=== PATIENT | female | born 1960 | race American Indian/Alaskan Native ===

== ENCOUNTER 2016-06-27 10:55 | Inpatient (IN) | payer OTHER ==
[2016-06-27 11:48] LABS: Hematocrit 34.4 % (30.3-42.9); Mean Corpuscular HGB Conc 32 % (30-34); Mean Corpuscular Hemoglobin 26 pg (28-32); Mean Corpuscular Volume 80 fl (79-97); Platelet Count 261 K/mm3 (140-440); Red Blood Count 4.29 M/mm3 (3.65-5.03); Red Cell Distribution Width 15.5 % (13.2-15.2); White Blood Count 24.5 K/mm3 (4.5-11.0)
[2016-06-27 11:56] LABS: Anion Gap 19 mmol/L; BUN/Creatinine Ratio 11.42; Blood Urea Nitrogen 8 mg/dL (7-17); Calcium 9.1 mg/dL (8.4-10.2); Carbon Dioxide 23 mmol/L (22-30); Chloride 95.8 mmol/L (98-107); Glucose 215 mg/dL (65-100); Sodium 134 mmol/L (137-145)
--- NOTE | 2016-06-27 12:21 | XRay Report ---
ROUTINE CHEST, TWO VIEWS: HISTORY: Cough, fever. Moderate infiltrate is identified in the superior segment of the right lower lobe. The remainder of the lungs are clear. No pleural effusion or pneumothorax. Normal heart and mediastinal structures. IMPRESSION: Right lower lobe pneumonia.
[2016-06-27 12:31] LABS: Basophils % (Manual) 0 % (0.0-1.8); Blastocytes % (Manual) 0 %; Eosinophils % (Manual) 0 % (0.0-4.3)
[2016-06-27 12:32] LABS: Anisocytosis 1+; Diff Status Complete; Target Cells Few; Tear Drop Cells Rare
--- NOTE | 2016-06-27 14:40 | Emergency Department Report ---
HPI - General Chief Complaint: Upper Respiratory Infection Time Seen by Provider: 06/27/16 14:39 - HPI HPI: Patient here complaining of productive cough since last week. She said mucus started at clear brownish color. She is complaining of upper back pain since Friday. Complaining the chest is hurting since last week. Pain only with coughing. She reports fever for a few days. 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 Pain is 10 out of 10 to her upper back. Patient is also requesting a refill on her metformin. She has a history of diabetes in the past. She reports shortness of breath and exertion. ED Past Medical Hx - Past Medical History Previous Medical History?: Yes Hx Diabetes: Yes (TYPE 2) Hx Arthritis: Yes Additional medical history: SICKLE CELL TRAIT. LUPUS - Surgical History Past Surgical History?: Yes Hx Cholecystectomy: Yes Additional Surgical History: ovarian cyst removed - Family History Family history: no significant - Social History Smoking Status: Current Every Day Smoker Substance Use Type: None - Medications Home Medications: Home Medications Medication Instructions Recorded Confirmed Last Taken Type Amlodipine Besylate [Norvasc] 2.5 mg PO DAILY 06/27/16 06/27/16 Unknown History metFORMIN [Glucophage] 500 mg PO TID 06/27/16 06/27/16 06/27/16 07:00 History 500 mg ED Review of Systems ROS: Stated complaint: HBS/FEVER/BACK PAIN/HEADACHE Other details as noted in HPI Comment: All other systems reviewed and negative Constitutional: chills, fever Eyes: denies: eye discharge ENT: denies: ear pain, throat pain, congestion Respiratory: cough, shortness of breath, SOB with exertion. denies: orthopnea, SOB at rest, stridor, wheezing Cardiovascular: chest pain. denies: palpitations, edema, syncope Gastrointestinal: denies: abdominal pain, nausea, vomiting, diarrhea Musculoskeletal: back pain. denies: arthralgia Skin: denies: rash Neurological: denies: headache, weakness, numbness, paresthesias, confusion, abnormal gait, vertigo Physical Exam - Physical Exam Vital Signs: Vital Signs 06/27/16 11:05 Temperature 100.2 F H Pulse Rate 119 H Respiratory 22 Rate Blood Pressure 141/75 O2 Sat by Pulse 100 Oximetry General: This is a 48-year-old female well-nourished well-developed in no acute distress Physical Exam: Head: Normocephalic atraumatic Mouth: Moist, no pharyngeal exudate or erythema. Uvula is midline and oral airway is patent. No gingival enlargement or dental tenderness. No facial swelling. No peritonsillar abscesses. Neck: Supple, no C-spine tenderness, no tracheal deviation. Nontender to palpate. no adenopathy Abdomen: Soft, nontender to palpate in all quadrants, no guarding or rebound tenderness. Ears: Bilateral TMs pearly kapoor.bilateral EAC without any redness swelling or drainage Eyes: Bilateral pupils equal and reactive to light, bilateral EOM intact. Bilateral sclera and conjunctiva without injection. Normal accommodation Nose: Mucosa moist, positive congestion no erythema. Positive clear drainage. maxillary and frontal sinus non-tender to palpate. Lungs: Crackles right base . Rhonchi bilateral upper lung chacko this cleared with coughing. Normal work of breathing . No use of accessory muscles. extremity; No CCE. +2 pulses. No neurovascular compromise Cardiovascular: S1-S2, regular rate rhythm. No murmurs. Capillary refill less than 3 seconds Skin: clean Dry and intact no rash no lesions no no use ED Course Vital Signs 06/27/16 11:05 Temperature 100.2 F H Pulse Rate 119 H Respiratory 22 Rate Blood Pressure 141/75 O2 Sat by Pulse 100 Oximetry Vital Signs 06/27/16 06/27/16 11:05 16:56 Temperature 100.2 F H Pulse Rate 119 H Respiratory 22 16 Rate Blood Pressure 141/75 O2 Sat by Pulse 100 Oximetry - Reevaluation(s) Reevaluation #1: 06/27/16 15:51 Decision made to admit patient. I collaborated with Dr. Davis and I spoke with Dr. Abdalla. Patient given IV fluid 1 L. Zosyn 4.5 gm started. Nebulizer treatment started ED Medical Decision Making - Lab Data Result diagrams: 06/27/16 11:37 06/27/16 11:37 Lab Results 06/27/16 06/27/16 06/27/16 Range/Units 11:13 11:37 11:37 WBC 24.5 H (4.5-11.0) K/mm3 RBC 4.29 (3.65-5.03) M/mm3 Hgb 11.0 (10.1-14.3) gm/dl Hct 34.4 (30.3-42.9) % MCV 80 (79-97) fl MCH 26 L (28-32) pg MCHC 32 (30-34) % RDW 15.5 H (13.2-15.2) % Plt Count 261 (140-440) K/mm3 Add Manual Diff Complete Total Counted 100 Seg Neuts % (Manual) 88.0 H (40.0-70.0) % Band Neutrophils % 3.0 % Lymphocytes % (Manual) 7.0 L (13.4-35.0) % Reactive Lymphs % (Man) 0 % Monocytes % (Manual) 2.0 (0.0-7.3) % Eosinophils % (Manual) 0 (0.0-4.3) % Basophils % (Manual) 0 (0.0-1.8) % Metamyelocytes % 0 % Myelocytes % 0 % Promyelocytes % 0 % Blast Cells % 0 % Nucleated RBC % Not Reportable Seg Neutrophils # Man 21.6 H (1.8-7.7) K/mm3 Band Neutrophils # 0.7 K/mm3 Lymphocytes # (Manual) 1.7 (1.2-5.4) K/mm3 Abs React Lymphs (Man) 0.0 K/mm3 Monocytes # (Manual) 0.5 (0.0-0.8) K/mm3 Eosinophils # (Manual) 0.0 (0.0-0.4) K/mm3 Basophils # (Manual) 0.0 (0.0-0.1) K/mm3 Metamyelocytes # 0.0 K/mm3 Myelocytes # 0.0 K/mm3 Promyelocytes # 0.0 K/mm3 Blast Cells # 0.0 K/mm3 WBC Morphology Not Reportable Hypersegmented Neuts Not Reportable Hyposegmented Neuts Not Reportable Hypogranular Neuts Not Reportable Smudge Cells Not Reportable Toxic Granulation Not Reportable Toxic Vacuolation Not Reportable Dohle Bodies Not Reportable Pelger-Huet Anomaly Not Reportable Amrik Rods Not Reportable Platelet Estimate Appears normal Clumped Platelets Not Reportable Plt Clumps, EDTA Not Reportable Large Platelets Not Reportable Giant Platelets Not Reportable Platelet Satelliting Not Reportable Plt Morphology Comment Not Reportable RBC Morphology Not Reportable Dimorphic RBCs Not Reportable Polychromasia Not Reportable Hypochromasia Not Reportable Poikilocytosis Not Reportable Anisocytosis 1+ Microcytosis Not Reportable Macrocytosis Not Reportable Spherocytes Not Reportable Pappenheimer Bodies Not Reportable Sickle Cells Not Reportable Target Cells Few Tear Drop Cells Rare Ovalocytes Not Reportable Helmet Cells Not Reportable [place] Bodies Not Reportable [place] Rings Not Reportable [place] Cells Not Reportable Bite Cells Not Reportable Crenated Cell Not Reportable Elliptocytes Not Reportable Acanthocytes (Spur) Not Reportable Rouleaux Not Reportable Hemoglobin C Crystals Not Reportable Schistocytes Not Reportable Malaria parasites Not Reportable Percent Retic 1.00 (0.78-2.58) % Joseph Bodies Not Reportable Hem Pathologist Commnt No Sodium 134 L (137-145) mmol/L Potassium 4.0 (3.6-5.0) mmol/L Chloride 95.8 L (98-107) mmol/L Carbon Dioxide 23 (22-30) mmol/L Anion Gap 19 mmol/L BUN 8 (7-17) mg/dL Creatinine 0.7 (0.7-1.2) mg/dL Estimated GFR > 60 ml/min BUN/Creatinine Ratio 11.42 % Glucose 215 H (65-100) mg/dL POC Glucose 212 H (70-105) Calcium 9.1 (8.4-10.2) mg/dL Cultures are pending. - Radiology Data Radiology results: report reviewed Chest x-ray revealed right lower lobe pneumonia. - Medical Decision Making ED course: Patient chest x-ray revealed that she has regular basis pneumonia. Case discussed with Dr. Wiseman. Patient admitted to admit patient. Patient with elevated white count of greater than 20. Cardiac enzymes negative. This was discussed with patient in detail and she understands decision to admit. I spoke with Dr. Ruvalcaba who is the hospitalist and he will be admitted patient to hospitalist service. Pt given IV fluids 1 L, Xopenex 1.25 mg and Atrovent 0.5 mg nebulizer, IV Zosyn 4.5 gm and Tylenol 975 mg given. Patient awaiting [facility] bed. Critical care attestation.: If time is entered above; I have spent that time in minutes in the direct care of this critically ill patient, excluding procedure time. ED Disposition Clinical Impression: Cough Right lower lobe pneumonia Qualifiers: Pneumonia type: due to unspecified organism Qualified Code(s): J18.9 - Pneumonia, unspecified organism Leukocytosis Qualifiers: Leukocytosis type: unspecified Qualified Code(s): D72.829 - Elevated white blood cell count, unspecified Disposition: OP ADMITTED IP TO THIS HOSP Is pt being admited?: Yes Does the pt Need Aspirin: No Condition: Stable
[2016-06-27] MEDS ORDERED: XOPENEX IH ONE (15:31)
[2016-06-27] MEDS ORDERED: ZOSYN/NS 4.5GM/100ML 4.5 GM/100 ML VIAL IV ONE (15:31)
[2016-06-27] MEDS ORDERED: ATROVENT IH ONE (15:31)
[2016-06-27] MEDS ORDERED: TYLENOL PO ONE (15:33)
--- NOTE | 2016-06-27 15:53 | Admit Criteria Form ---
Admission Criteria Documentation: FEBRILE ILLNESS, WITHOUT FOCAL INFECTION Clinical Indications for Admission to Inpatient Care (Place 'X' for any and all applicable criteria): Admission is indicated for ANY ONE of the following (1)(2)(3): [ ] I. Bacteremia [ ]II. Suspected or identified specific infection requiring hospitalization (eg, meningitis, endocarditis) [ ]III. Hemodynamic instability [ ]IV. Altered mental status [ ]V. Failure or unavailability of outpatient antimicrobial treatment [ ]. Hypoxemia [ ]VII. Seizures [ ]VIII. High-risk febrile neutropenia [ ]IX. Need for parenteral antibiotic in patient who is likely to abuse vascular access device (eg, injection drug user) [A](7) [ ]X. Temperature greater than 104.9 degrees F (40.5 degrees C) (oral) [X ]XI. Inpatient admission required rather than observation care because of ANY ONE of the following: [X ]a) Specific infection identified that is too severe for outpatient treatment or observation care trial [ ]b) Metabolic disorder (eg, hypoglycemia, hyperglycemia, metabolic acidosis) that is severe or persistent [ ]c) Temperature greater than 103.1 degrees F (39.5 degrees C) ( oral) that is not responsive to observation care treatment [ ]d) IV fluid to replace significant ongoing (eg, for over 24 hours) losses (> 3 L/m2 per day) [ ]e) Supplemental oxygen or respiratory treatments for over 24 hours that is performable only in acute inpatient setting [ ]f) Parenteral nutrition regimen need that must be implemented on inpatient basis [ ]g) Strict or protective (eg, laminar flow) isolation [ ]h) Other condition, treatment or monitoring requiring inpatient admission Extended stay beyond goal length of stay may be needed for(1)(3) [ ]a) Sepsis or septic shock(22) [ ]b) Positive blood cultures [ ]c) Insufficient oral intake [ ]d) High-risk febrile neutropenia(29)(30) [ ]e) Continued fever and clinical instability [ ]f) Clinically active comorbid illness (e.g,heart failure, renal failure , diabetes) The original [facility] content created by [facility] [employer] has been revised. The portions of the content which have been revised are identified through the use of italic text or in bold, and [facility] [employer] has neither reviewed nor approved the modified material. All other unmodified content is copyright [facility]. Please see references footnoted in the original [facility] edition 2016 Admission Criteria Met: Yes
[2016-06-27] MEDS ORDERED: NOVOLOG SUB-Q SCH (22:00)
[2016-06-27] MEDS: ZOSYN/NS 4.5GM/100ML 4.5 GM/100 ML VIAL IV SCH (22:25)
[2016-06-27] MEDS: ROBITUSSIN AC PO PRN (22:26)
--- NOTE | 2016-06-27 23:36 | History and Physical Report ---
History of Present Illness Date of examination: 06/27/16 Date of admission: 06/27/16 15:47 Chief complaint: Cough and fever for 2 days History of present illness: 56 y/o AAF with Htn and T2DM comes in for fever and cough productive of brown sputum.Some SOB present. R side chest pain on deep inspiration present.Hx of smoking present. Past History Past Medical History: diabetes, hypertension, other (SC trait) Past Surgical History: Other (ovarian cyst removal) Social history: smoking (ppd) Medications and Allergies Allergies Allergy/AdvReac Type Severity Reaction Status Date / Time No Known Allergies Allergy Verified 06/27/16 11:19 Home Medications Medication Instructions Recorded Confirmed Last Taken Type Amlodipine Besylate [Norvasc] 2.5 mg PO DAILY 06/27/16 06/27/16 Unknown History metFORMIN [Glucophage] 500 mg PO TID 06/27/16 06/27/16 06/27/16 07:00 History 500 mg Active Meds: Active Medications Piperacillin Sod/Tazobactam Sod (Zosyn/Ns 4.5gm/100ml) 4.5 gm in 100 mls @ 200 mls/hr IV Q8HR HERMELINDO PRN Reason: Protocol Last Admin: 06/27/16 22:25 Dose: 200 mls/hr Influenza Virus Vaccine Quadrival (Fluarix Quad [id number](36 Mos+)) 60 mcg IM .ONCE ONE Stop: 06/28/16 12:01 Insulin Aspart (Novolog) 0 units SUB-Q ACHS HERMELINDO PRN Reason: Protocol Last Admin: 06/27/16 22:26 Dose: 2 units Pneumococcal Polyvalent Vaccine (Pneumovax 23) 0.5 ml IM .ONCE ONE Stop: 06/28/16 12:01 Pseudoephedrine/Acetam/Chlorphenir (Robitussin Ac) 10 ml PO Q4H PRN PRN Reason: Cough Last Admin: 06/27/16 22:26 Dose: 10 ml Review of Systems Constitutional: fever, fatigue, poor appetite, no weight loss, no weight gain Ears, nose, mouth and throat: no ear pain, no ear discharge, no tinnitis, no decreased hearing, no nasal congestion, no nasal discharge Breasts: deferred Cardiovascular: no chest pain, no orthopnea, no palpitations, no rapid/ irregular heart beat Respiratory: no cough, no cough with sputum, no excessive sputum, no hemoptysis , no shortness of breath, no dyspnea on exertion Gastrointestinal: no abdominal pain, no nausea, no vomiting, no diarrhea, no change in bowel habits Genitourinary Female: no dysuria, no urinary frequency, no urgency, no stress incontinence Menstruation: ammenorrhea Musculoskeletal: no neck stiffness, no neck pain, no shooting arm pain Integumentary: no rash, no pruritis, no redness Neurological: no seizures, no syncope, no ataxia, no lack of coordination, no balance difficulties Psychiatric: no anxiety, no change in sleep habits, no suicidal ideation Endocrine: no cold intolerance, no heat intolerance, no polyphagia, no excessive thirst, no polydipsia, no polyuria Hematologic/Lymphatic: no easy bruising, no easy bleeding, no lymphedema Allergic/Immunologic: no urticaria, no allergic rhinitis, no wheezing Exam - Constitutional Vitals: Temp Pulse Resp BP Pulse Ox 98.3 F 82 20 100/55 98 06/27/16 23:00 06/27/16 23:00 06/27/16 23:00 06/27/16 23:00 06/27/16 23:00 General appearance: Present: no acute distress, well-nourished - EENT Eyes: Present: PERRL ENT: hearing intact, clear oral mucosa - Neck Neck: Present: supple, normal ROM - Respiratory Respiratory effort: normal Respiratory: right: rales, rhonchi - Cardiovascular Rhythm: regular Heart Sounds: Present: S1 & S2. Absent: rub, click - Extremities Extremities: no ischemia, pulses symmetrical, No edema Peripheral Pulses: within normal limits - Abdominal General gastrointestinal: Present: soft, non-tender, non-distended, normal bowel sounds Female genitourinary: Present: normal - Integumentary Integumentary: Present: clear, warm, dry - Musculoskeletal Musculoskeletal: gait normal, strength equal bilaterally - Psychiatric Psychiatric: appropriate mood/affect, intact judgment & insight - Neurologic Neurologic: CNII-XII intact, moves all extremities - Allied Health Allied health notes reviewed: nursing Results - Labs CBC & Chem 7: 06/27/16 11:37 06/27/16 11:37 Labs: Laboratory Last Values WBC 24.5 K/mm3 (4.5-11.0) H 06/27/16 11:37 RBC 4.29 M/mm3 (3.65-5.03) 06/27/16 11:37 Hgb 11.0 gm/dl (10.1-14.3) 06/27/16 11:37 Hct 34.4 % (30.3-42.9) 06/27/16 11:37 MCV 80 fl (79-97) 06/27/16 11:37 MCH 26 pg (28-32) L 06/27/16 11:37 MCHC 32 % (30-34) 06/27/16 11:37 RDW 15.5 % (13.2-15.2) H 06/27/16 11:37 Plt Count 261 K/mm3 (140-440) 06/27/16 11:37 Add Manual Diff Complete 06/27/16 11:37 Total Counted 100 06/27/16 11:37 Seg Neuts % (Manual) 88.0 % (40.0-70.0) H 06/27/16 11:37 Band Neutrophils % 3.0 % 06/27/16 11:37 Lymphocytes % (Manual) 7.0 % (13.4-35.0) L 06/27/16 11:37 Reactive Lymphs % (Man) 0 % 06/27/16 11:37 Monocytes % (Manual) 2.0 % (0.0-7.3) 06/27/16 11:37 Eosinophils % (Manual) 0 % (0.0-4.3) 06/27/16 11:37 Basophils % (Manual) 0 % (0.0-1.8) 06/27/16 11:37 Metamyelocytes % 0 % 06/27/16 11:37 Myelocytes % 0 % 06/27/16 11:37 Promyelocytes % 0 % 06/27/16 11:37 Blast Cells % 0 % 06/27/16 11:37 Nucleated RBC % Not Reportable 06/27/16 11:37 Seg Neutrophils # Man 21.6 K/mm3 (1.8-7.7) H 06/27/16 11:37 Band Neutrophils # 0.7 K/mm3 06/27/16 11:37 Lymphocytes # (Manual) 1.7 K/mm3 (1.2-5.4) 06/27/16 11:37 Abs React Lymphs (Man) 0.0 K/mm3 06/27/16 11:37 Monocytes # (Manual) 0.5 K/mm3 (0.0-0.8) 06/27/16 11:37 Eosinophils # (Manual) 0.0 K/mm3 (0.0-0.4) 06/27/16 11:37 Basophils # (Manual) 0.0 K/mm3 (0.0-0.1) 06/27/16 11:37 Metamyelocytes # 0.0 K/mm3 06/27/16 11:37 Myelocytes # 0.0 K/mm3 06/27/16 11:37 Promyelocytes # 0.0 K/mm3 06/27/16 11:37 Blast Cells # 0.0 K/mm3 06/27/16 11:37 WBC Morphology Not Reportable 06/27/16 11:37 Hypersegmented Neuts Not Reportable 06/27/16 11:37 Hyposegmented Neuts Not Reportable 06/27/16 11:37 Hypogranular Neuts Not Reportable 06/27/16 11:37 Smudge Cells Not Reportable 06/27/16 11:37 Toxic Granulation Not Reportable 06/27/16 11:37 Toxic Vacuolation Not Reportable 06/27/16 11:37 Dohle Bodies Not Reportable 06/27/16 11:37 Pelger-Huet Anomaly Not Reportable 06/27/16 11:37 Amrik Rods Not Reportable 06/27/16 11:37 Platelet Estimate Appears normal 06/27/16 11:37 Clumped Platelets Not Reportable 06/27/16 11:37 Plt Clumps, EDTA Not Reportable 06/27/16 11:37 Large Platelets Not Reportable 06/27/16 11:37 Giant Platelets Not Reportable 06/27/16 11:37 Platelet Satelliting Not Reportable 06/27/16 11:37 Plt Morphology Comment Not Reportable 06/27/16 11:37 RBC Morphology Not Reportable 06/27/16 11:37 Dimorphic RBCs Not Reportable 06/27/16 11:37 Polychromasia Not Reportable 06/27/16 11:37 Hypochromasia Not Reportable 06/27/16 11:37 Poikilocytosis Not Reportable 06/27/16 11:37 Anisocytosis 1+ 06/27/16 11:37 Microcytosis Not Reportable 06/27/16 11:37 Macrocytosis Not Reportable 06/27/16 11:37 Spherocytes Not Reportable 06/27/16 11:37 Pappenheimer Bodies Not Reportable 06/27/16 11:37 Sickle Cells Not Reportable 06/27/16 11:37 Target Cells Few 06/27/16 11:37 Tear Drop Cells Rare 06/27/16 11:37 Ovalocytes Not Reportable 06/27/16 11:37 Helmet Cells Not Reportable 06/27/16 11:37 [place]ed[place] Bodies Not Reportable 06/27/16 11:37 [place] Rings Not Reportable 06/27/16 11:37 [place] Cells Not Reportable 06/27/16 11:37 Bite Cells Not Reportable 06/27/16 11:37 Crenated Cell Not Reportable 06/27/16 11:37 Elliptocytes Not Reportable 06/27/16 11:37 Acanthocytes (Spur) Not Reportable 06/27/16 11:37 Rouleaux Not Reportable 06/27/16 11:37 Hemoglobin C Crystals Not Reportable 06/27/16 11:37 Schistocytes Not Reportable 06/27/16 11:37 Malaria parasites Not Reportable 06/27/16 11:37 Percent Retic 1.00 % (0.78-2.58) 06/27/16 11:37 Joseph Bodies Not Reportable 06/27/16 11:37 Hem Pathologist Commnt No 06/27/16 11:37 Sodium 134 mmol/L (137-145) L 06/27/16 11:37 Potassium 4.0 mmol/L (3.6-5.0) 06/27/16 11:37 Chloride 95.8 mmol/L (98-107) L 06/27/16 11:37 Carbon Dioxide 23 mmol/L (22-30) 06/27/16 11:37 Anion Gap 19 mmol/L 06/27/16 11:37 BUN 8 mg/dL (7-17) 06/27/16 11:37 Creatinine 0.7 mg/dL (0.7-1.2) 06/27/16 11:37 Estimated GFR > 60 ml/min 06/27/16 11:37 BUN/Creatinine Ratio 11.42 % 06/27/16 11:37 Glucose 215 mg/dL (65-100) H 06/27/16 11:37 POC Glucose 207 (70-105) H 06/27/16 21:20 Lactic Acid 1.0 mmol/L (0.7-2.0) 06/27/16 19:00 Calcium 9.1 mg/dL (8.4-10.2) 06/27/16 11:37 Short CBC 06/27/16 Range/Units 11:37 WBC 24.5 H (4.5-11.0) K/mm3 Hgb 11.0 (10.1-14.3) gm/dl Hct 34.4 (30.3-42.9) % Plt Count 261 (140-440) K/mm3 BMP 06/27/16 11:37 Sodium 134 L Potassium 4.0 Chloride 95.8 L Carbon Dioxide 23 BUN 8 Creatinine 0.7 Glucose 215 H Calcium 9.1 - Imaging and Cardiology Chest x-ray: report reviewed (RLL pneumonia) Assessment and Plan Advance Directives: No VTE prophylaxis?: Chemical Plan of care discussed with patient/family: Yes - Patient Problems (1) Leukocytosis Current Visit: Yes Status: Acute Qualifiers: Leukocytosis type: unspecified Qualified Code(s): D72.829 - Elevated white blood cell count, unspecified (2) Right lower lobe pneumonia Current Visit: Yes Status: Acute Qualifiers: Pneumonia type: due to unspecified organism Aspiration pneumonia type: A Qualified Code(s): J18.9 - Pneumonia, unspecified organism Plan to address problem: Patient started on IV Zosyn 4.5 q8h (3) SIRS (systemic inflammatory response syndrome) Current Visit: Yes Status: Acute Plan to address problem: Patient has Leukocytosis High fever and clinical picture c/w SIRS (4) HTN (hypertension) Current Visit: Yes Status: Chronic Qualifiers: Hypertension type: essential hypertension Qualified Code(s): I10 - Essential (primary) hypertension Plan to address problem: Cont Amlodipine 2.5 mg po qd (5) T2DM (type 2 diabetes mellitus) Current Visit: Yes Status: Chronic Qualifiers: Diabetes mellitus complication status: without complication Diabetes mellitus complication detail: D Diabetic retinopathy severity: D Proliferative retinopathy type: P Diabetes mellitus macular edema: D Diabetes mellitus adjunct faculty for medical terminology insulin use: without mcfp use Laterality: L Chronic kidney disease stage: C Qualified Code(s): E11.9 - Type 2 diabetes mellitus without complications Plan to address problem: cont Metformin and coverage with insulin (6) DVT prophylaxis Current Visit: Yes Status: Acute Plan to address problem: on lovenox 40 mg sq qd
[2016-06-27] MEDS ORDERED: NACL 0.9% 1000 ML 1,000 ML IV SCH (23:45)
[2016-06-28] MEDS: ZOSYN/NS 4.5GM/100ML 4.5 GM/100 ML VIAL IV SCH ×3 (06:55→22:32)
[2016-06-28] MEDS: ROBITUSSIN AC PO PRN (06:56)
[2016-06-28] MEDS: NOVOLOG SUB-Q SCH ×3 (08:17→17:29)
[2016-06-28] MEDS: GLUCOPHAGE PO SCH ×2 (08:18→12:01)
[2016-06-28] MEDS ORDERED: NON-FORMULARY (Amlodipine Besylate [Norvasc] 2.5 MG) PO SCH (10:00)
[2016-06-28] MEDS: NORVASC PO SCH (11:53)
[2016-06-28] MEDS ORDERED: FLUARIX QUAD 2016-2017(36 MOS+) IM ONE (12:00)
[2016-06-28] MEDS ORDERED: PNEUMOVAX 23 IM ONE (12:00)
[2016-06-28] MEDS ORDERED: D50W (25GM) IV PRN (13:53)
--- NOTE | 2016-06-28 13:55 | Progress Note ---
Assessment and Plan - Patient Problems (1) Sepsis Current Visit: Yes Status: Acute Qualifiers: Sepsis type: S (2) DVT prophylaxis Current Visit: Yes Status: Acute (3) Right lower lobe pneumonia Current Visit: Yes Status: Acute Qualifiers: Pneumonia type: due to unspecified organism Aspiration pneumonia type: A Qualified Code(s): J18.9 - Pneumonia, unspecified organism (4) HTN (hypertension) Current Visit: Yes Status: Chronic Qualifiers: Hypertension type: essential hypertension Qualified Code(s): I10 - Essential (primary) hypertension (5) T2DM (type 2 diabetes mellitus) Current Visit: Yes Status: Chronic Qualifiers: Diabetes mellitus complication status: without complication Diabetes mellitus complication detail: D Diabetic retinopathy severity: D Proliferative retinopathy type: P Diabetes mellitus macular edema: D 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 use Laterality: L Chronic kidney disease stage: C Qualified Code(s): E11.9 - Type 2 diabetes mellitus without complications Hospitalist Physical - Constitutional Vitals: Temp Pulse Resp BP Pulse Ox 98.3 F 72 14 101/52 100 06/28/16 07:20 06/28/16 07:20 06/28/16 07:20 06/28/16 07:20 06/28/16 09:24 General appearance: Present: no acute distress, well-nourished Results - Labs CBC & Chem 7: 06/27/16 11:37 06/27/16 11:37 Labs: Laboratory Last Values WBC 24.5 K/mm3 (4.5-11.0) H 06/27/16 11:37 RBC 4.29 M/mm3 (3.65-5.03) 06/27/16 11:37 Hgb 11.0 gm/dl (10.1-14.3) 06/27/16 11:37 Hct 34.4 % (30.3-42.9) 06/27/16 11:37 MCV 80 fl (79-97) 06/27/16 11:37 MCH 26 pg (28-32) L 06/27/16 11:37 MCHC 32 % (30-34) 06/27/16 11:37 RDW 15.5 % (13.2-15.2) H 06/27/16 11:37 Plt Count 261 K/mm3 (140-440) 06/27/16 11:37 Add Manual Diff Complete 06/27/16 11:37 Total Counted 100 06/27/16 11:37 Seg Neuts % (Manual) 88.0 % (40.0-70.0) H 06/27/16 11:37 Band Neutrophils % 3.0 % 06/27/16 11:37 Lymphocytes % (Manual) 7.0 % (13.4-35.0) L 06/27/16 11:37 Reactive Lymphs % (Man) 0 % 06/27/16 11:37 Monocytes % (Manual) 2.0 % (0.0-7.3) 06/27/16 11:37 Eosinophils % (Manual) 0 % (0.0-4.3) 06/27/16 11:37 Basophils % (Manual) 0 % (0.0-1.8) 06/27/16 11:37 Metamyelocytes % 0 % 06/27/16 11:37 Myelocytes % 0 % 06/27/16 11:37 Promyelocytes % 0 % 06/27/16 11:37 Blast Cells % 0 % 06/27/16 11:37 Nucleated RBC % Not Reportable 06/27/16 11:37 Seg Neutrophils # Man 21.6 K/mm3 (1.8-7.7) H 06/27/16 11:37 Band Neutrophils # 0.7 K/mm3 06/27/16 11:37 Lymphocytes # (Manual) 1.7 K/mm3 (1.2-5.4) 06/27/16 11:37 Abs React Lymphs (Man) 0.0 K/mm3 06/27/16 11:37 Monocytes # (Manual) 0.5 K/mm3 (0.0-0.8) 06/27/16 11:37 Eosinophils # (Manual) 0.0 K/mm3 (0.0-0.4) 06/27/16 11:37 Basophils # (Manual) 0.0 K/mm3 (0.0-0.1) 06/27/16 11:37 Metamyelocytes # 0.0 K/mm3 06/27/16 11:37 Myelocytes # 0.0 K/mm3 06/27/16 11:37 Promyelocytes # 0.0 K/mm3 06/27/16 11:37 Blast Cells # 0.0 K/mm3 06/27/16 11:37 WBC Morphology Not Reportable 06/27/16 11:37 Hypersegmented Neuts Not Reportable 06/27/16 11:37 Hyposegmented Neuts Not Reportable 06/27/16 11:37 Hypogranular Neuts Not Reportable 06/27/16 11:37 Smudge Cells Not Reportable 06/27/16 11:37 Toxic Granulation Not Reportable 06/27/16 11:37 Toxic Vacuolation Not Reportable 06/27/16 11:37 Dohle Bodies Not Reportable 06/27/16 11:37 Pelger-Huet Anomaly Not Reportable 06/27/16 11:37 Amrik Rods Not Reportable 06/27/16 11:37 Platelet Estimate Appears normal 06/27/16 11:37 Clumped Platelets Not Reportable 06/27/16 11:37 Plt Clumps, EDTA Not Reportable 06/27/16 11:37 Large Platelets Not Reportable 06/27/16 11:37 Giant Platelets Not Reportable 06/27/16 11:37 Platelet Satelliting Not Reportable 06/27/16 11:37 Plt Morphology Comment Not Reportable 06/27/16 11:37 RBC Morphology Not Reportable 06/27/16 11:37 Dimorphic RBCs Not Reportable 06/27/16 11:37 Polychromasia Not Reportable 06/27/16 11:37 Hypochromasia Not Reportable 06/27/16 11:37 Poikilocytosis Not Reportable 06/27/16 11:37 Anisocytosis 1+ 06/27/16 11:37 Microcytosis Not Reportable 06/27/16 11:37 Macrocytosis Not Reportable 06/27/16 11:37 Spherocytes Not Reportable 06/27/16 11:37 Pappenheimer Bodies Not Reportable 06/27/16 11:37 Sickle Cells Not Reportable 06/27/16 11:37 Target Cells Few 06/27/16 11:37 Tear Drop Cells Rare 06/27/16 11:37 Ovalocytes Not Reportable 06/27/16 11:37 Helmet Cells Not Reportable 06/27/16 11:37 [place] Bodies Not Reportable 06/27/16 11:37 [place] Rings Not Reportable 06/27/16 11:37 José Miguel Cells Not Reportable 06/27/16 11:37 Bite Cells Not Reportable 06/27/16 11:37 Crenated Cell Not Reportable 06/27/16 11:37 Elliptocytes Not Reportable 06/27/16 11:37 Acanthocytes (Spur) Not Reportable 06/27/16 11:37 Rouleaux Not Reportable 06/27/16 11:37 Hemoglobin C Crystals Not Reportable 06/27/16 11:37 Schistocytes Not Reportable 06/27/16 11:37 Malaria parasites Not Reportable 06/27/16 11:37 Percent Retic 1.00 % (0.78-2.58) 06/27/16 11:37 Joseph Bodies Not Reportable 06/27/16 11:37 Hem Pathologist Commnt No 06/27/16 11:37 Sodium 134 mmol/L (137-145) L 06/27/16 11:37 Potassium 4.0 mmol/L (3.6-5.0) 06/27/16 11:37 Chloride 95.8 mmol/L (98-107) L 06/27/16 11:37 Carbon Dioxide 23 mmol/L (22-30) 06/27/16 11:37 Anion Gap 19 mmol/L 06/27/16 11:37 BUN 8 mg/dL (7-17) 06/27/16 11:37 Creatinine 0.7 mg/dL (0.7-1.2) 06/27/16 11:37 Estimated GFR > 60 ml/min 06/27/16 11:37 BUN/Creatinine Ratio 11.42 % 06/27/16 11:37 Glucose 215 mg/dL (65-100) H 06/27/16 11:37 POC Glucose 102 (70-105) 06/28/16 06:13 Lactic Acid 1.0 mmol/L (0.7-2.0) 06/27/16 19:00 Calcium 9.1 mg/dL (8.4-10.2) 06/27/16 11:37
[2016-06-28] MEDS ORDERED: ROCEPHIN/NS 1 GM/50 ML 1 GM/50 ML BAG IV SCH (18:00)
[2016-06-28] MEDS ORDERED: ZITHROMAX 500 MG in NACL 0.9% 250ML 250 ML IV SCH (18:30)
[2016-06-28] MEDS ORDERED: LOVENOX SUB-Q SCH (22:00)
[2016-06-29] MEDS: NOVOLOG SUB-Q SCH ×3 (01:21→11:47)
[2016-06-29] MEDS: ROBITUSSIN AC PO PRN (05:24)
[2016-06-29] MEDS ORDERED: HABITROL TD SCH (06:00)
[2016-06-29] MEDS: ZOSYN/NS 4.5GM/100ML 4.5 GM/100 ML VIAL IV SCH (06:04)
[2016-06-29] MEDS: NORVASC PO SCH (10:32)
[2016-06-29 11:50] VITALS: BP 127/66
--- NOTE | 2016-06-30 10:35 | Discharge Summary ---
Providers - Providers Date of Admission: 06/27/16 15:47 Attending physician: IAIN LUNDY Primary care physician: LENS HARDENER Hospitalization Condition: Stable Disposition: STILL A PATIENT - Discharge Diagnoses (1) Sepsis Status: Acute Qualifiers: Sepsis type: S (2) DVT prophylaxis Status: Acute (3) Right lower lobe pneumonia Status: Acute Qualifiers: Pneumonia type: due to unspecified organism Aspiration pneumonia type: A Qualified Code(s): J18.9 - Pneumonia, unspecified organism (4) HTN (hypertension) Status: Chronic Qualifiers: Hypertension type: essential hypertension Qualified Code(s): I10 - Essential (primary) hypertension (5) T2DM (type 2 diabetes mellitus) Status: Chronic Qualifiers: Diabetes mellitus complication status: without complication Diabetes mellitus complication detail: D Diabetic retinopathy severity: D Proliferative retinopathy type: P Diabetes mellitus macular edema: D Diabetes mellitus usp insulin use: without usp use Laterality: L Chronic kidney disease stage: C Qualified Code(s): E11.9 - Type 2 diabetes mellitus without complications Exam - Constitutional Vitals: Temp Pulse Resp BP Pulse Ox 98.0 F 77 18 127/66 100 06/29/16 11:49 06/29/16 10:32 06/29/16 12:12 06/29/16 11:49 06/29/16 11:49 Plan Follow up with: [facility] [Outside] - 7 Days Prescriptions: Ciprofloxacin HCl [Ciprofloxacin TAB] 500 mg PO BID #14 tablet Nicotine [Habitrol] 7 mg TD DAILY #30 patch
== END 2016-06-29 12:41 | disposition home or self-care (01) | DRG 871 ==
LOC: ED 10:55 → 3A 15:47
PROVIDERS: ADMIT Internal Medicine; ATTEND Internal Medicine
DX: A41.9 Sepsis, unspecified organism (principal); J18.9 Pneumonia, unspecified organism; E11.9 Type 2 diabetes mellitus without complications; M19.90 Unspecified osteoarthritis, unspecified site; D57.3 Sickle-cell trait; M32.9 Systemic lupus erythematosus, unspecified; Z90.49 Acquired absence of other specified parts of digestive tract; D72.89 Other specified disorders of white blood cells; I10 Essential (primary) hypertension; F17.210 Nicotine dependence, cigarettes, uncomplicated; D72.829 Elevated white blood cell count, unspecified; R65.10 Systemic inflammatory response syndrome (SIRS) of non-infectious origin without acute organ dysfunction; Z23 Encounter for immunization
CPT/HCPCS: 36415; 71020; 80048; 82140; 82962; 85007; 85025; 85045; 87040; 90686; 90732; 94640; 94760; 96365; 99406; J0456; J0696; J1650; J1815; J2543; J7030; J7050

== ENCOUNTER 2018-05-10 08:12 | Emergency (ER) | payer SELFPAY ==
[2018-05-10 08:23] VITALS: BP 183/93
[2018-05-10] MEDS ORDERED: CATAPRES PO ONE (08:38)
--- NOTE | 2018-05-10 08:41 | Emergency Department Report ---
ED General Adult HPI - General Chief complaint: Weakness Stated complaint: BLOOD SUGAR IS HIGH Time Seen by Provider: 05/10/18 08:32 Source: patient Mode of arrival: Ambulatory Limitations: No Limitations - History of Present Illness Initial comments: Patient is 57 years old female with history of hypertension and diabetes. Patient stated that she is taking metformin 500 mg twice a day. She Y not of blood pressure medicine she does not remember the name. Patient stated that she is using vinegar for the blood pressure. Patient presented to the ER today complaining of generalized weakness, and feeling fatigued and tired and going a lot to the bathroom. Patient stated that her blood sugar at home is in the 200s. Patient denied any headache, neck pain, focal weakness, numbness or tingling sensation. No bowel or bladder incontinence. Patient also denies any chest pain or shortness of breath. - Related Data Home Medications Medication Instructions Recorded Confirmed Last Taken Amlodipine Besylate [Norvasc] 2.5 mg PO DAILY 06/27/16 06/27/16 Unknown metFORMIN [Glucophage] 500 mg PO TID 06/27/16 06/27/16 06/27/16 07:00 500 mg Previous Rx's Medication Instructions Recorded Last Taken Type Ciprofloxacin HCl [Ciprofloxacin 500 mg PO BID #14 tablet 06/29/16 Unknown Rx TAB] Nicotine [Habitrol] 7 mg TD DAILY #30 patch 06/29/16 Unknown Rx Allergies Allergy/AdvReac Type Severity Reaction Status Date / Time No Known Allergies Allergy Verified 06/27/16 11:19 ED Review of Systems ROS: Stated complaint: BLOOD SUGAR IS HIGH Other details as noted in HPI Comment: All other systems reviewed and negative Constitutional: denies: chills, fever Respiratory: denies: cough, orthopnea, shortness of breath, SOB with exertion, SOB at rest, wheezing Cardiovascular: denies: chest pain, palpitations Gastrointestinal: denies: abdominal pain, nausea, vomiting, diarrhea, constipation, hematemesis, melena, hematochezia Musculoskeletal: denies: back pain Neurological: weakness (generalized). denies: headache, numbness, paresthesias, confusion, abnormal gait Psychiatric: denies: depression ED Past Medical Hx - Past Medical History Hx Diabetes: Yes Hx Sickle Cell Disease: Yes (Trait) Hx Arthritis: Yes Additional medical history: SICKLE CELL TRAIT. LUPUS - Surgical History Hx Cholecystectomy: Yes Additional Surgical History: ovarian cyst removed - Social History Smoking Status: Current Every Day Smoker Substance Use Type: None - Medications Home Medications: Home Medications Medication Instructions Recorded Confirmed Last Taken Type Amlodipine Besylate [Norvasc] 2.5 mg PO DAILY 06/27/16 06/27/16 Unknown History metFORMIN [Glucophage] 500 mg PO TID 06/27/16 06/27/16 06/27/16 07:00 History 500 mg Ciprofloxacin HCl [Ciprofloxacin 500 mg PO BID #14 tablet 06/29/16 Unknown Rx TAB] Nicotine [Habitrol] 7 mg TD DAILY #30 patch 06/29/16 Unknown Rx ED Physical Exam - General Limitations: No Limitations General appearance: alert, in no apparent distress - Head Head exam: Present: atraumatic, normocephalic, normal inspection - Eye Eye exam: Present: normal appearance - ENT ENT exam: Present: normal exam, normal orophraynx, mucous membranes moist, other (dental caries) - Neck Neck exam: Present: normal inspection. Absent: tenderness, meningismus - Respiratory Respiratory exam: Present: normal lung sounds bilaterally. Absent: respiratory distress, wheezes, chest wall tenderness - Cardiovascular Cardiovascular Exam: Present: regular rate. Absent: normal rhythm, bradycardia, tachycardia, irregular rhythm, normal heart sounds, systolic murmur, diastolic murmur, rubs, gallop - GI/Abdominal GI/Abdominal exam: Present: soft, normal bowel sounds. Absent: distended, tenderness, guarding, rebound, rigid, organomegaly, mass, bruit, pulsatile mass, hernia - Extremities Exam Extremities exam: Present: normal inspection, full ROM, normal capillary refill. Absent: pedal edema, calf tenderness - Back Exam Back exam: Present: normal inspection, full ROM. Absent: tenderness, CVA tender ness (R), CVA tenderness (L), muscle spasm, paraspinal tenderness, vertebral tenderness - Neurological Exam Neurological exam: Present: alert, oriented X3, CN II-XII intact, normal gait, reflexes normal - Skin Skin exam: Present: warm, intact, normal color ED Course Vital Signs 05/10/18 05/10/18 08:19 09:04 Temperature 98.6 F Pulse Rate 109 H 99 H Respiratory 18 Rate Blood Pressure 183/93 183/93 O2 Sat by Pulse 100 Oximetry ED Medical Decision Making - Lab Data Result diagrams: 05/10/18 08:51 05/10/18 08:51 Critical care attestation.: If time is entered above; I have spent that time in minutes in the direct care of this critically ill patient, excluding procedure time. ED Disposition Clinical Impression: Malignant hypertension, Hyperglycemia due to type 2 diabetes mellitus, Dental caries Disposition: TO HOME OR SELFCARE Is pt being admited?: No Condition: Stable Instructions: Hypertension (ED), Diabetes Mellitus Type 2 in Adults (ED), Dental Caries (ED) Referrals: [facility] [Provider Group] - 3-5 Days
[2018-05-10 09:03] LABS: Basophils # (Auto) 0.1 K/mm3 (0.0-0.1); Eosinophils # (Auto) 0.1 K/mm3 (0.0-0.4); Eosinophils % (Auto) 1.2 % (0.0-4.3); Hematocrit 35.3 % (30.3-42.9); Hemoglobin 11.4 gm/dl (10.1-14.3); Lymphocytes # (Auto) 2.2 K/mm3 (1.2-5.4); Lymphocytes % (Auto) 25.6 % (13.4-35.0); Mean Corpuscular HGB Conc 32 % (30-34); Mean Corpuscular Volume 83 fl (79-97); Monocytes % (Auto) 11.4 % (0.0-7.3); Platelet Count 266 K/mm3 (140-440); Red Blood Count 4.28 M/mm3 (3.65-5.03)
[2018-05-10 09:19] LABS: BUN/Creatinine Ratio 13; Blood Urea Nitrogen 9 mg/dL (7-17); Calcium 8.8 mg/dL (8.4-10.2); Hemolysis Index 41
[2018-05-10 09:21] LABS: Bacteria,Urine 1+ /HPF (Negative); Bilirubin,Urine NEG (Negative); Blood,Urine SM (Negative); Color,Urine Straw (Yellow); Mucus,Urine FEW /HPF; Protein,Urine <15 mg/dL mg/dL (Negative); Urobilinogen,Urine < 2.0 mg/dL (<2.0)
== END 2018-05-10 10:19 | disposition home or self-care (01) ==
LOC: ED 08:12
DX: I10 Essential (primary) hypertension (principal); K02.9 Dental caries, unspecified; D57.3 Sickle-cell trait; M19.90 Unspecified osteoarthritis, unspecified site; F17.200 Nicotine dependence, unspecified, uncomplicated; Z90.49 Acquired absence of other specified parts of digestive tract
CPT/HCPCS: 36415; 80048; 81001; 82962; 85025; 99283

== ENCOUNTER 2018-06-14 11:24 | Emergency (ER) | payer SELFPAY ==
--- NOTE | 2018-06-14 11:51 | Emergency Department Report ---
Blank Doc - Documentation Documentation: This is a 58-year-old female that presents with nausea, frequent urination, dy suria, and right flank pain x2 weeks. Patient also stated has some left eye blurry vision. Denies any other complaints. Tachy and febrile in traige. This initial assessment diagnostic orders/clinical plan/treatment(s) is/are subject to change based on patient's health status, clinical progression and re- assessment by fellow clinical providers in the ED. Further treatment and workup at subsequent clinical providers discretion. Patient/guardians urged not to elope from ED s their condition may be serious if not clinically assessed and managed. Initial orders include: 1-Patient sent to main side for further evaluation and treatment 2- labs 3- UA
[2018-06-14] MEDS ORDERED: ZOFRAN IV ONE (12:17)
[2018-06-14] MEDS ORDERED: SUBLIMAZE IV ONE (12:17)
[2018-06-14] MEDS ORDERED: NACL 0.9% 1000 ML 1,000 ML IV ONE (12:17)
--- NOTE | 2018-06-14 12:27 | Emergency Department Report ---
HPI - General Chief Complaint: Urogenital-Female Time Seen by Provider: 06/14/18 11:44 - HPI HPI: Room 5 58-year-old female presenting with a chief complaint of nausea. The patient states for 2 weeks she's intractable nausea without vomiting. Patient states she is also bilateral flank pain greatest on the right and dysuria for a little over 2 weeks. Patient denies hematuria or vaginal discharge. Patient admits to a fever of 102.8F at home. Patient states she's had diffuse abdominal pain but denies diarrhea. The patient gives her pain a score of 10/10 Location: [See above] Duration: [See above] Quality: [See above] Severity: [See above] Modifying factors: [see above] Context: [see above] Mode of transportation: [not driving] ED Past Medical Hx - Past Medical History Hx Diabetes: Yes Hx Sickle Cell Disease: Yes (Trait) Hx Arthritis: Yes Additional medical history: SICKLE CELL TRAIT. LUPUS - Surgical History Past Surgical History?: Yes Hx Cholecystectomy: Yes Additional Surgical History: ovarian cyst removed - Family History Family history: no significant - Social History Smoking Status: Current Every Day Smoker (1 pack per day) Substance Use Type: None (denies illicit drug use) - Medications Home Medications: Home Medications Medication Instructions Recorded Confirmed Last Taken Type Amlodipine Besylate [Norvasc] 2.5 mg PO DAILY 06/27/16 06/27/16 Unknown History metFORMIN [Glucophage] 500 mg PO TID 06/27/16 06/27/16 06/27/16 07:00 History 500 mg Ciprofloxacin HCl [Ciprofloxacin 500 mg PO BID #14 tablet 06/29/16 Unknown Rx TAB] Nicotine [Habitrol] 7 mg TD DAILY #30 patch 06/29/16 Unknown Rx Amoxicillin [Amoxicillin TAB] 875 mg PO BID #14 tablet 05/10/18 Unknown Rx amLODIPine [Norvasc] 5 mg PO DAILY #30 tab 05/10/18 Unknown Rx hydroCHLOROthiazide [HCTZ] 25 mg PO QDAY #30 tablet 05/10/18 Unknown Rx metFORMIN [Glucophage] 850 mg PO BID #60 tablet 05/10/18 Unknown Rx HYDROcodone/APAP 5-325 [[place] 1 - 2 each PO Q6HR PRN #14 tablet 06/14/18 Unknown Rx 5/325] Phenazopyridine [Pyridium] 200 mg PO TID #6 tab 06/14/18 Unknown Rx Promethazine [Phenergan] 25 mg FL Q6HR PRN #5 supp.rect 06/14/18 Unknown Rx amLODIPine [Norvasc] 5 mg PO DAILY #90 tab 06/14/18 Unknown Rx levoFLOXacin [Levaquin TAB] 500 mg PO QDAY #10 tablet 06/14/18 Unknown Rx metFORMIN [Glucophage] 850 mg PO BID #90 tablet 06/14/18 Unknown Rx ED Review of Systems ROS: Stated complaint: PAINFUL/FREQUENT URINATION/BLURRY VISION Other details as noted in HPI Constitutional: fever Eyes: denies: eye pain ENT: denies: throat pain Respiratory: no symptoms reported Cardiovascular: denies: chest pain Endocrine: no symptoms reported Gastrointestinal: abdominal pain, nausea. denies: vomiting, diarrhea Genitourinary: dysuria. denies: hematuria, discharge Musculoskeletal: back pain Neurological: denies: headache Physical Exam - Physical Exam Vital Signs: Vital Signs 06/14/18 11:47 Temperature 100.1 F H Pulse Rate 103 H Respiratory 20 Rate Blood Pressure 141/94 Blood Pressure 141/94 [Right] O2 Sat by Pulse 100 Oximetry Physical Exam: GENERAL: The patient is well-developed well-nourished female lying on stretcher not appearing to be in acute distress. [] HEENT: Normocephalic. Atraumatic. Extraocular motions are intact. Patient has moist mucous membranes. NECK: Supple. Trachea midline CHEST/LUNGS: Clear to auscultation. There is no respiratory distress noted. HEART/CARDIOVASCULAR: Regular. There is no tachycardia. There is no gallop rub or murmur. ABDOMEN: Abdomen is soft, with diffuse discomfort to palpation. No rebound or guarding. Patient has normal bowel sounds. There is no abdominal distention. SKIN: There is no rash. There is no edema. There is no diaphoresis. NEURO: The patient is awake, alert, and oriented. The patient is cooperative. The patient has normal speech MUSCULOSKELETAL: There is right CVA tenderness. There is no evidence of acute injury. ED Course Vital Signs 06/14/18 11:47 Temperature 100.1 F H Pulse Rate 103 H Respiratory 20 Rate Blood Pressure 141/94 Blood Pressure 141/94 [Right] O2 Sat by Pulse 100 Oximetry ED Medical Decision Making - Lab Data Result diagrams: 06/14/18 12:04 06/14/18 12:04 Laboratory Tests 06/14/18 06/14/18 06/14/18 11:55 12:04 12:04 WBC 11.1 H RBC 4.57 Hgb 11.6 Hct 35.2 MCV 77 L MCH 25 L MCHC 33 RDW 14.6 Plt Count 221 Lymph % (Auto) 17.2 Morgan % (Auto) 13.0 H Eos % (Auto) 0.3 Baso % (Auto) 0.6 Lymph # 1.9 Morgan # 1.4 H Eos # 0.0 Baso # 0.1 Seg Neutrophils % 68.9 Seg Neutrophils # 7.6 VBG pH Sodium 139 Potassium 3.6 Chloride 98.9 Carbon Dioxide 25 Anion Gap 19 BUN 13 Creatinine 0.7 Estimated GFR > 60 BUN/Creatinine Ratio 19 Glucose 142 H Calcium 8.8 Total Bilirubin 0.20 AST 17 ALT 10 Alkaline Phosphatase 99 Total Protein 7.4 Albumin 3.9 Albumin/Globulin Ratio 1.1 Urine Color Yellow Urine Turbidity Cloudy Urine pH 5.0 Ur Specific [place] 1.011 Urine Protein 30 mg/dl Urine Glucose (UA) Neg Urine Ketones Neg Urine Blood Mod Urine Nitrite Pos Urine Bilirubin Neg Urine Urobilinogen < 2.0 Ur Leukocyte Esterase Lg Urine WBC (Auto) > 182.0 H Urine RBC (Auto) 9.0 U Epithel Cells (Auto) 2.0 Urine Bacteria (Auto) 2+ Urine WBC Clumps 2+ 06/14/18 12:04 WBC RBC Hgb Hct MCV MCH MCHC RDW Plt Count Lymph % (Auto) Morgan % (Auto) Eos % (Auto) Baso % (Auto) Lymph # Morgan # Eos # Baso # Seg Neutrophils % Seg Neutrophils # VBG pH 7.422 H Sodium Potassium Chloride Carbon Dioxide Anion Gap BUN Creatinine Estimated GFR BUN/Creatinine Ratio Glucose Calcium Total Bilirubin AST ALT Alkaline Phosphatase Total Protein Albumin Albumin/Globulin Ratio Urine Color Urine Turbidity Urine pH Ur Specific [place] Urine Protein Urine Glucose (UA) Urine Ketones Urine Blood Urine Nitrite Urine Bilirubin Urine Urobilinogen Ur Leukocyte Esterase Urine WBC (Auto) Urine RBC (Auto) U Epithel Cells (Auto) Urine Bacteria (Auto) Urine WBC Clumps - Radiology Data Radiology results: report reviewed (CT abdomen and pelvis), image reviewed (CT abdomen and pelvis) CT abdomen and pelvis (read by radiologist)-mild stranding around the inferior pole of the right kidney which is nonspecific, that may represent infection or inflammation. Recommend clinical correlation. No renal or ureteral calculi. No hydronephrosis. Subtle treatment but opacities and groundglass pulmonary opacities in the right lower lobe. Findings may represent infection or infla mmation. - Differential Diagnosis pyelonephritis, renal colic Critical care attestation.: If time is entered above; I have spent that time in minutes in the direct care of this critically ill patient, excluding procedure time. ED Disposition Clinical Impression: Pyelonephritis, Acute right flank pain, Dysuria Disposition: TO HOME OR SELFCARE Is pt being admited?: No Does the pt Need Aspirin: No Condition: Stable Instructions: Acute Pyelonephritis (ED) Additional Instructions: Return to the emergency department immediately should you develop worsening symptoms, fever, inability to tolerate food or liquid or any other concerns. Prescriptions: amLODIPine [Norvasc] 5 mg PO DAILY #90 tab HYDROcodone/APAP 5-325 [[place] 5/325] 1 - 2 each PO Q6HR PRN #14 tablet PRN Reason: Pain levoFLOXacin [Levaquin TAB] 500 mg PO QDAY #10 tablet metFORMIN [Glucophage] 850 mg PO BID #90 tablet Phenazopyridine [Pyridium] 200 mg PO TID #6 tab Promethazine [Phenergan] 25 mg FL Q6HR PRN #5 supp.rect PRN Reason: Vomiting Referrals: THERON BRADFORD [Primary Care Provider] - 3-5 Days MCKENZIE LOWRY MD [Staff Physician] - 3-5 Days ([employer]) Time of Disposition: 14:10
[2018-06-14 12:28] LABS: Basophils # (Auto) 0.1 K/mm3 (0.0-0.1); Basophils % (Auto) 0.6 % (0.0-1.8); Eosinophils % (Auto) 0.3 % (0.0-4.3); Hematocrit 35.2 % (30.3-42.9); Hemoglobin 11.6 gm/dl (10.1-14.3); Lymphocytes # (Auto) 1.9 K/mm3 (1.2-5.4); Lymphocytes % (Auto) 17.2 % (13.4-35.0); Mean Corpuscular HGB Conc 33 % (30-34); Mean Corpuscular Volume 77 fl (79-97); Monocytes # (Auto) 1.4 K/mm3 (0.0-0.8); Platelet Count 221 K/mm3 (140-440); Red Blood Count 4.57 M/mm3 (3.65-5.03); Red Cell Distribution Width 14.6 % (13.2-15.2)
[2018-06-14 12:33] LABS: Bacteria,Urine 2+ /HPF (Negative); Bilirubin,Urine NEG (Negative); Blood,Urine MOD (Negative); Color,Urine Yellow (Yellow); Urobilinogen,Urine < 2.0 mg/dL (<2.0)
[2018-06-14 12:35] LABS: WBC,Urine > 182.0 /HPF (0.0-6.0)
[2018-06-14] MEDS ORDERED: LEVAQUIN PO ONE (12:40)
[2018-06-14 12:53] LABS: Alanine Aminotransferase 10 units/L (7-56); Albumin 3.9 g/dL (3.9-5); BUN/Creatinine Ratio 19; Blood Urea Nitrogen 13 mg/dL (7-17); Calcium 8.8 mg/dL (8.4-10.2); Hemolysis Index 0
--- NOTE | 2018-06-14 13:50 | Cat Scan Report ---
FINAL REPORT EXAM: CT ABDOMEN PELVIS WO CON HISTORY: right flank pain, dysuria COMPARISON: None. TECHNIQUE: Multiple contiguous axial images were obtained from the lung bases to the pubic symphysis without administration of IV contrast. Reformatted sagittal and coronal images were available for re view. FINDINGS: Lung bases: Subtle tree-in-bud opacities and ground-glass opacities in the right lower lobe.. Visualized heart and mediastinum: Small pericardial effusion. Normal heart size. Liver: Normal noncontrast appearance. Spleen: Normal noncontrast appearance. Pancreas: Normal noncontrast appearance. Gallbladder and Biliary Tree: The gallbladder is surgically absent. No biliary ductal dilatation. Adrenal glands: Normal. Kidneys: Mild stranding around the inferior pole of the right kidney. No hydronephrosis. No renal or ureteral calculi. Bladder: Normal. Pelvic organs: Normal. Bowel: No focal wall thickening. No obstruction. Normal appendix without surrounding inflammatory amanda nge. Large amount of stool within the colon. Diverticulosis of the descending and sigmoid colon witho ut evidence of diverticulitis. Peritoneum: No significant mesenteric adenopathy. No free air or free fluid. Vasculature: Abdominal aorta is normal in caliber without evidence of aneurysm. Scattered atheroscler otic calcifications. Normal noncontrast appearance of the portal venous system and the inferior vena cava. Bones and soft tissues: No suspicious osseous lesions. No acute fracture or dislocation. Degenerative changes of the lumbar spine. Small, fat containing periumbilical hernia. IMPRESSION: 1. Mild stranding around the inferior pole of the right kidney, which is nonspecific, that may repres ent infection or inflammation. Recommend clinical correlation. 2. No renal or ureteral calculi. No hydronephrosis. 3. Subtle tree-in-bud opacities and ground-glass pulmonary opacities in the right lower lobe. Finding s may represent infection or inflammation. 4. Small pericardial effusion.
[2018-06-14 14:31] VITALS: BP 134/67
== END 2018-06-14 14:40 | disposition home or self-care (01) ==
LOC: ED 11:24
DX: N12 Tubulo-interstitial nephritis, not specified as acute or chronic (principal); E11.9 Type 2 diabetes mellitus without complications; M19.90 Unspecified osteoarthritis, unspecified site; D57.3 Sickle-cell trait; F17.200 Nicotine dependence, unspecified, uncomplicated; Z90.49 Acquired absence of other specified parts of digestive tract; Z79.84 Long term (current) use of oral hypoglycemic drugs
CPT/HCPCS: 36415; 74176; 80053; 81001; 82805; 85025; 87076; 87086; 87186; 96361; 96374; 96375; 99284; J2405; J3010; J7030

== ENCOUNTER 2018-10-10 06:02 | Emergency (ER) | payer SELFPAY ==
[2018-10-10 07:24] LABS: Basophils # (Auto) 0.1 K/mm3 (0.0-0.1); Basophils % (Auto) 0.9 % (0.0-1.8); Eosinophils # (Auto) 0.1 K/mm3 (0.0-0.4); Eosinophils % (Auto) 1.1 % (0.0-4.3); Hematocrit 37.9 % (30.3-42.9); Hemoglobin 12.8 gm/dl (10.1-14.3); Lymphocytes % (Auto) 21.7 % (13.4-35.0); Mean Corpuscular HGB Conc 34 % (30-34); Mean Corpuscular Volume 81 fl (79-97); Monocytes # (Auto) 0.5 K/mm3 (0.0-0.8); Monocytes % (Auto) 5.6 % (0.0-7.3); Platelet Count 289 K/mm3 (140-440); Red Blood Count 4.71 M/mm3 (3.65-5.03)
[2018-10-10 07:32] LABS: BUN/Creatinine Ratio 14; Blood Urea Nitrogen 10 mg/dL (7-17); Calcium 9.3 mg/dL (8.4-10.2); Hemolysis Index 4
--- NOTE | 2018-10-10 07:33 | Emergency Department Report ---
ED General Adult HPI - General Chief complaint: Dizziness Stated complaint: DIZZINESS/MOUTH PAIN Time Seen by Provider: 10/10/18 07:25 Source: patient Mode of arrival: Ambulatory Limitations: No Limitations - History of Present Illness Initial comments: This is a 58-year-old female was not complaining about dizziness. She may have had some generalized weakness. She is here because she has a dental infection which is very long-term. She has not seen a dentist. She also wants me to provide her prescriptions for her hypertension and diabetes. She denies fever or chills. She is grossly eroded lower premolar. Recently she has developed some swelling of her perimandibular face. She has no trismus. She is able swallow. She has no respiratory symptoms. -: Gradual, week(s) Location: face, mouth Radiation: non-radiation Quality: aching Consistency: intermittent Improves with: none Worsens with: none Associated Symptoms: denies other symptoms - Related Data Home Medications Medication Instructions Recorded Confirmed Last Taken Amlodipine Besylate [Norvasc] 2.5 mg PO DAILY 06/27/16 06/27/16 Unknown Previous Rx's Medication Instructions Recorded Last Taken Type Ciprofloxacin HCl [Ciprofloxacin 500 mg PO BID #14 tablet 06/29/16 Unknown Rx TAB] Nicotine [Habitrol] 7 mg TD DAILY #30 patch 06/29/16 Unknown Rx Amoxicillin [Amoxicillin TAB] 875 mg PO BID #14 tablet 05/10/18 Unknown Rx amLODIPine [Norvasc] 5 mg PO DAILY #30 tab 05/10/18 Unknown Rx hydroCHLOROthiazide [HCTZ] 25 mg PO QDAY #30 tablet 05/10/18 Unknown Rx metFORMIN [Glucophage] 850 mg PO BID #60 tablet 05/10/18 Unknown Rx HYDROcodone/APAP 5-325 [[place] 1 - 2 each PO Q6HR PRN #14 tablet 06/14/18 Unknown Rx 5/325] Phenazopyridine [Pyridium] 200 mg PO TID #6 tab 06/14/18 Unknown Rx Promethazine [Phenergan] 25 mg [place] Q6HR PRN #5 supp.rect 06/14/18 Unknown Rx levoFLOXacin [Levaquin TAB] 500 mg PO QDAY #10 tablet 06/14/18 Unknown Rx metFORMIN [Glucophage] 850 mg PO BID #90 tablet 06/14/18 Unknown Rx Clindamycin [Clindamycin CAP] 300 mg PO Q8HR #60 capsule 10/10/18 Unknown Rx HYDROcodone/APAP 5-325 [[place] 1 each PO Q6HR PRN #7 tablet 10/10/18 Unknown Rx 5-325 mg TAB] amLODIPine [Norvasc] 5 mg PO DAILY #30 tab 10/10/18 Unknown Rx metFORMIN [Glucophage] 500 mg PO BID #60 tablet 10/10/18 Unknown Rx Allergies Allergy/AdvReac Type Severity Reaction Status Date / Time No Known Allergies Allergy Verified 06/27/16 11:19 ED Review of Systems ROS: Stated complaint: DIZZINESS/MOUTH PAIN Other details as noted in HPI Constitutional: weakness. denies: chills, fever Eyes: denies: eye pain, eye discharge, vision change ENT: as per HPI, dental pain. denies: ear pain, throat pain Respiratory: denies: cough, shortness of breath, wheezing Cardiovascular: denies: chest pain, palpitations Endocrine: no symptoms reported Gastrointestinal: denies: abdominal pain, nausea, diarrhea Genitourinary: denies: urgency, dysuria, discharge Musculoskeletal: denies: back pain, joint swelling, arthralgia Skin: denies: rash, lesions Neurological: denies: headache, weakness, paresthesias Psychiatric: denies: anxiety, depression Hematological/Lymphatic: denies: easy bleeding, easy bruising ED Past Medical Hx - Past Medical History Previous Medical History?: Yes Hx Hypertension: Yes Hx Diabetes: Yes Hx Sickle Cell Disease: Yes (Trait) Hx Arthritis: Yes Additional medical history: SICKLE CELL TRAIT. LUPUS - Surgical History Past Surgical History?: Yes Hx Cholecystectomy: Yes Additional Surgical History: ovarian cyst removed - Social History Smoking Status: Current Every Day Smoker Substance Use Type: None - Medications Home Medications: Home Medications Medication Instructions Recorded Confirmed Last Taken Type Amlodipine Besylate [Norvasc] 2.5 mg PO DAILY 06/27/16 06/27/16 Unknown History Ciprofloxacin HCl [Ciprofloxacin 500 mg PO BID #14 tablet 06/29/16 Unknown Rx TAB] Nicotine [Habitrol] 7 mg TD DAILY #30 patch 06/29/16 Unknown Rx Amoxicillin [Amoxicillin TAB] 875 mg PO BID #14 tablet 05/10/18 Unknown Rx amLODIPine [Norvasc] 5 mg PO DAILY #30 tab 05/10/18 Unknown Rx hydroCHLOROthiazide [HCTZ] 25 mg PO QDAY #30 tablet 05/10/18 Unknown Rx metFORMIN [Glucophage] 850 mg PO BID #60 tablet 05/10/18 Unknown Rx HYDROcodone/APAP 5-325 [[place] 1 - 2 each PO Q6HR PRN #14 tablet 06/14/18 Unknown Rx 5/325] Phenazopyridine [Pyridium] 200 mg PO TID #6 tab 06/14/18 Unknown Rx Promethazine [Phenergan] 25 mg [place] Q6HR PRN #5 supp.rect 06/14/18 Unknown Rx levoFLOXacin [Levaquin TAB] 500 mg PO QDAY #10 tablet 06/14/18 Unknown Rx metFORMIN [Glucophage] 850 mg PO BID #90 tablet 06/14/18 Unknown Rx Clindamycin [Clindamycin CAP] 300 mg PO Q8HR #60 capsule 10/10/18 Unknown Rx HYDROcodone/APAP 5-325 [[place] 1 each PO Q6HR PRN #7 tablet 10/10/18 Unknown Rx 5-325 mg TAB] amLODIPine [Norvasc] 5 mg PO DAILY #30 tab 10/10/18 Unknown Rx metFORMIN [Glucophage] 500 mg PO BID #60 tablet 10/10/18 Unknown Rx ED Physical Exam - General Limitations: No Limitations General appearance: alert, in no apparent distress - Head Head exam: Present: atraumatic, normocephalic - Eye Eye exam: Present: normal appearance. Absent: scleral icterus - ENT ENT exam: Present: mucous membranes moist, other (grossly eroded carious lower premolar left probably #19) - Neck Neck exam: Present: normal inspection - Respiratory Respiratory exam: Present: normal lung sounds bilaterally. Absent: respiratory distress - Cardiovascular Cardiovascular Exam: Present: regular rate, normal rhythm. Absent: systolic murmur, diastolic murmur, rubs, gallop - GI/Abdominal GI/Abdominal exam: Present: soft, normal bowel sounds. Absent: distended, tenderness, guarding, rebound, rigid - Extremities Exam Extremities exam: Present: normal inspection - Back Exam Back exam: Present: normal inspection - Neurological Exam Neurological exam: Present: alert, oriented X3, CN II-XII intact. Absent: motor sensory deficit - Psychiatric Psychiatric exam: Present: normal affect, normal mood - Skin Skin exam: Present: warm, dry, intact, normal color. Absent: rash ED Course Vital Signs 10/10/18 08:03 Pulse Rate 74 Respiratory 17 Rate Blood Pressure 145/66 [Right] O2 Sat by Pulse 100 Oximetry ED Medical Decision Making - Lab Data Result diagrams: 10/10/18 06:59 10/10/18 06:59 Laboratory Results - last 24 hr 10/10/18 10/10/18 06:59 06:59 [place] % (Auto) 5.6 Eos % (Auto) 1.1 [place] # 0.5 Eos # 0.1 Baso # 0.1 Seg Neutrophils % 70.7 H Seg Neutrophils # 6.5 Sodium 141 Potassium 3.3 L Chloride 104.9 Carbon Dioxide 22 Anion Gap 17 BUN 10 Creatinine 0.7 Estimated GFR > 60 BUN/Creatinine Ratio 14 Glucose 256 H Calcium 9.3 Laboratory Results - last 24 hr 10/10/18 10/10/18 06:59 06:59 [place] % (Auto) 5.6 Eos % (Auto) 1.1 [place] # 0.5 Eos # 0.1 Baso # 0.1 Seg Neutrophils % 70.7 H Seg Neutrophils # 6.5 Sodium 141 Potassium 3.3 L Chloride 104.9 Carbon Dioxide 22 Anion Gap 17 BUN 10 Creatinine 0.7 Estimated GFR > 60 BUN/Creatinine Ratio 14 Glucose 256 H Calcium 9.3 Laboratory Results - last 24 hr 10/10/18 10/10/18 06:59 06:59 [place] % (Auto) 5.6 Eos % (Auto) 1.1 [place] # 0.5 Eos # 0.1 Baso # 0.1 Seg Neutrophils % 70.7 H Seg Neutrophils # 6.5 Sodium 141 Potassium 3.3 L Chloride 104.9 Carbon Dioxide 22 Anion Gap 17 BUN 10 Creatinine 0.7 Estimated GFR > 60 BUN/Creatinine Ratio 14 Glucose 256 H Calcium 9.3 Laboratory Results - last 24 hr 10/10/18 10/10/18 06:59 06:59 WBC 9.2 RBC 4.71 Hgb 12.8 Hct 37.9 MCV 81 MCH 27 L MCHC 34 RDW 20.6 H Plt Count 289 Lymph % (Auto) 21.7 [place] % (Auto) 5.6 Eos % (Auto) 1.1 Baso % (Auto) 0.9 Lymph # 2.0 [place] # 0.5 Eos # 0.1 Baso # 0.1 Seg Neutrophils % 70.7 H Seg Neutrophils # 6.5 Sodium 141 Potassium 3.3 L Chloride 104.9 Carbon Dioxide 22 Anion Gap 17 BUN 10 Creatinine 0.7 Estimated GFR > 60 BUN/Creatinine Ratio 14 Glucose 256 H Calcium 9.3 - EKG Data -: EKG Interpreted by Me EKG shows normal: sinus rhythm, axis, intervals, QRS complexes, ST-T waves Rate: normal - EKG Data Interpretation: no acute changes, normal EKG Critical care attestation.: If time is entered above; I have spent that time in minutes in the direct care of this critically ill patient, excluding procedure time. 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 Further dental management is essential. Follow-up with the [facility]. Return any acute change or problems. Prescriptions: Clindamycin [Clindamycin CAP] 300 mg PO Q8HR #60 capsule metFORMIN [Glucophage] 500 mg PO BID #60 tablet HYDROcodone/APAP 5-325 [[place] 5-325 mg TAB] 1 each PO Q6HR PRN #7 tablet PRN Reason: Pain , Severe (7-10) amLODIPine [Norvasc] 5 mg PO DAILY #30 tab Ref[facility]: [facility] MD EMILIANA [Primary Care Provider] - 3-5 Days Time of Disposition: 08:27
[2018-10-10] MEDS ORDERED: BICILLIN L-A IM ONE (07:42)
[2018-10-10] MEDS ORDERED: NORCO 5/325 PO ONE (07:42)
[2018-10-10] MEDS ORDERED: K-DUR PO ONE (07:45)
[2018-10-10 08:22] LABS: Red Cell Distribution Width 20.6 % (13.2-15.2)
[2018-10-10 08:56] VITALS: BP 114/58
== END 2018-10-10 08:55 | disposition home or self-care (01) ==
LOC: ED 06:02
DX: E11.9 Type 2 diabetes mellitus without complications (principal); K02.9 Dental caries, unspecified; I10 Essential (primary) hypertension; M19.90 Unspecified osteoarthritis, unspecified site; D57.3 Sickle-cell trait; F17.200 Nicotine dependence, unspecified, uncomplicated; Z90.49 Acquired absence of other specified parts of digestive tract; Z79.899 Other long term (current) drug therapy
CPT/HCPCS: 36415; 80048; 85025; 93005; 93010; 96372; 99283; J0561

== ENCOUNTER 2020-05-12 10:45 | Emergency (ER) | payer SELFPAY ==
--- NOTE | 2020-05-12 10:59 | Event Note ---
ED Screening Note Date of service: 05/12/20 Time: 10:58 ED Screening Note: Patient complains of chest pain and shortness of breath x4 days. This initial assessment/diagnostic orders/clinical plan/treatment(s) is/are subject to change based on patients health status, clinical progression and re- assessment by fellow clinical providers in the ED. Further treatment and workup at subsequent clinical providers discretion. Patient/guardian urged not to elope from the ED as their condition may be serious if not clinically assessed and managed. Initial orders include: Labs Chest x-ray EKG
--- NOTE | 2020-05-12 11:37 | XRay Report ---
CHEST 2 VIEWS INDICATION: chest pain. COMPARISON: 06/27/2016 FINDINGS: Support devices: None. Heart: Within normal limits. Lungs/pleura: No acute air space or interstitial disease. No pneumothorax. Additional findings: None. IMPRESSION: No acute findings. Signer Name: Fabrice Burt Jr, MD Signed: 05/12/2020 11:33 AM Workstation Name: [id number]
[2020-05-12 12:04] LABS: Basophils # (Auto) 0.1 K/mm3 (0.0-0.1); Basophils % (Auto) 0.8 % (0.0-1.8); Eosinophils % (Auto) 0.5 % (0.0-4.3); Hematocrit 41.4 % (30.3-42.9); Hemoglobin 13.6 gm/dl (10.1-14.3); Lymphocytes # (Auto) 2.5 K/mm3 (1.2-5.4); Lymphocytes % (Auto) 27.4 % (13.4-35.0); Mean Corpuscular HGB Conc 33 % (30-34); Mean Corpuscular Volume 84 fl (79-97); Monocytes # (Auto) 0.8 K/mm3 (0.0-0.8); Monocytes % (Auto) 8.4 % (0.0-7.3); Platelet Count 222 K/mm3 (140-440); Red Blood Count 4.96 M/mm3 (3.65-5.03); Red Cell Distribution Width 15.5 % (13.2-15.2)
[2020-05-12 12:23] LABS: Alanine Aminotransferase 12 units/L (7-56); BUN/Creatinine Ratio 19; Blood Urea Nitrogen 15 mg/dL (7-17); Calcium 9.6 mg/dL (8.4-10.2); Hemolysis Index 13
--- NOTE | 2020-05-12 16:28 | Emergency Department Report ---
ED Chest Pain HPI - General Chief Complaint: Chest Pain Stated Complaint: CHEST PAIN; GUM PAIN PUI?: No Time Seen by Provider: 05/12/20 10:57 Source: patient Mode of arrival: Ambulatory Limitations: No Limitations - History of Present Illness Initial Comments: Chief complaint: "I have a lot going on." HPI: This is a 59-year-old female who presents to emergency department for several concerns. She has a history of hypertension, diabetes mellitus and sickle cell trait. Next Patient has been set due to the of her daughter several years ago. Her daughter after a long protracted illness related to sickle cell disease. She was taken by her daughter on Friday. She had sharp chest pain at rest. The episode lasted several minutes. She had associated shortness of breath. The episode did not recur. Patient denies suicidal ideation. Patient has had lower back pain for several months. Bilateral lumbar. She feels achy and dull. Worse with movement. She is concerned about her kidneys since she has a history of diabetes mellitus. Patient requests medication refill of amlodipine and Metformin. Patient has dental pain. She desires antibiotics. MD Complaint: chest pain -: Gradual, days(s) (3 days ago) Onset: during rest Pain Location: substernal Pain Radiation: none Severity: mild Severity scale (0 -10): 10 Quality: sharp Consistency: now resolved Improves With: nothing Worsens With: nothing - Related Data Home Medications Medication Instructions Recorded Confirmed Last Taken Amlodipine Besylate [Norvasc] 2.5 mg PO DAILY 06/27/16 06/27/16 Unknown Previous Rx's Medication Instructions Recorded Last Taken Type Ciprofloxacin HCl [Ciprofloxacin 500 mg PO BID #14 tablet 06/29/16 Unknown Rx TAB] Nicotine [Habitrol] 7 mg TD DAILY #30 patch 06/29/16 Unknown Rx Amoxicillin [Amoxicillin TAB] 875 mg PO BID #14 tablet 05/10/18 Unknown Rx amLODIPine [Norvasc] 5 mg PO DAILY #30 tab 05/10/18 Unknown Rx hydroCHLOROthiazide [HCTZ] 25 mg PO QDAY #30 tablet 05/10/18 Unknown Rx metFORMIN [Glucophage] 850 mg PO BID #60 tablet 05/10/18 Unknown Rx HYDROcodone/APAP 5-325 [[place] 1 - 2 each PO Q6HR PRN #14 tablet 06/14/18 Unknown Rx 5/325] Phenazopyridine [Pyridium] 200 mg PO TID #6 tab 06/14/18 Unknown Rx Promethazine [Phenergan] 25 mg [place] Q6HR PRN #5 supp.rect 06/14/18 Unknown Rx levoFLOXacin [Levaquin TAB] 500 mg PO QDAY #10 tablet 06/14/18 Unknown Rx metFORMIN [Glucophage] 850 mg PO BID #90 tablet 06/14/18 Unknown Rx Clindamycin [Clindamycin CAP] 300 mg PO Q8HR #60 capsule 10/10/18 Unknown Rx HYDROcodone/APAP 5-325 [[place] 1 each PO Q6HR PRN #7 tablet 10/10/18 Unknown Rx 5-325 mg TAB] amLODIPine 5 mg PO DAILY #30 tab 10/10/18 Unknown Rx metFORMIN [Glucophage] 500 mg PO BID #60 tablet 10/10/18 Unknown Rx Amoxicillin [Trimox CAP] 500 mg PO TID 7 Days #21 capsule 05/12/20 Unknown Rx amLODIPine 5 mg PO DAILY #90 tab 05/12/20 Unknown Rx metFORMIN [Glucophage] 500 mg PO BID 90 Days #180 tablet 05/12/20 Unknown Rx Allergies Allergy/AdvReac Type Severity Reaction Status Date / Time No Known Allergies Allergy Verified 05/12/20 10:47 Heart Score - HEART Score History: Slightly suspicious EKG: Non-specific Age: 45-65 Risk factors: 1-2 risk factors Troponin: < normal limit HEART Score: 3 ED Review of Systems ROS: Stated complaint: CHEST PAIN; GUM PAIN Other details as noted in HPI Comment: All other systems reviewed and negative ENT: dental pain. denies: ear pain Respiratory: shortness of breath. denies: cough Cardiovascular: chest pain ED Past Medical Hx - Past Medical History Previous Medical History?: Yes Hx Hypertension: Yes Hx Diabetes: Yes Hx Sickle Cell Disease: Yes (Trait) Hx Arthritis: Yes Additional medical history: SICKLE CELL TRAIT. LUPUS - Surgical History Past Surgical History?: Yes Hx Cholecystectomy: Yes Additional Surgical History: ovarian cyst removed - Social History Smoking Status: Current Every Day Smoker Substance Use Type: None - Medications Home Medications: Home Medications Medication Instructions Recorded Confirmed Last Taken Type Amlodipine Besylate [Norvasc] 2.5 mg PO DAILY 06/27/16 06/27/16 Unknown History Ciprofloxacin HCl [Ciprofloxacin 500 mg PO BID #14 tablet 06/29/16 Unknown Rx TAB] Nicotine [Habitrol] 7 mg TD DAILY #30 patch 06/29/16 Unknown Rx Amoxicillin [Amoxicillin TAB] 875 mg PO BID #14 tablet 05/10/18 Unknown Rx amLODIPine [Norvasc] 5 mg PO DAILY #30 tab 05/10/18 Unknown Rx hydroCHLOROthiazide [HCTZ] 25 mg PO QDAY #30 tablet 05/10/18 Unknown Rx metFORMIN [Glucophage] 850 mg PO BID #60 tablet 05/10/18 Unknown Rx HYDROcodone/APAP 5-325 [[place] 1 - 2 each PO Q6HR PRN #14 tablet 06/14/18 Unknown Rx 5/325] Phenazopyridine [Pyridium] 200 mg PO TID #6 tab 06/14/18 Unknown Rx Promethazine [Phenergan] 25 mg [place] Q6HR PRN #5 supp.rect 06/14/18 Unknown Rx levoFLOXacin [Levaquin TAB] 500 mg PO QDAY #10 tablet 06/14/18 Unknown Rx metFORMIN [Glucophage] 850 mg PO BID #90 tablet 06/14/18 Unknown Rx Clindamycin [Clindamycin CAP] 300 mg PO Q8HR #60 capsule 10/10/18 Unknown Rx HYDROcodone/APAP 5-325 [[place] 1 each PO Q6HR PRN #7 tablet 10/10/18 Unknown Rx 5-325 mg TAB] amLODIPine 5 mg PO DAILY #30 tab 10/10/18 Unknown Rx metFORMIN [Glucophage] 500 mg PO BID #60 tablet 10/10/18 Unknown Rx Amoxicillin [Trimox CAP] 500 mg PO TID 7 Days #21 capsule 05/12/20 Unknown Rx amLODIPine 5 mg PO DAILY #90 tab 05/12/20 Unknown Rx metFORMIN [Glucophage] 500 mg PO BID 90 Days #180 tablet 05/12/20 Unknown Rx ED Physical Exam - General Limitations: No Limitations General appearance: alert, in no apparent distress, other (Strong odor of tobacco smoke on person) - Head Head exam: Present: atraumatic, normocephalic, other (No facial swelling) - Eye Eye exam: Present: normal appearance - ENT ENT exam: Present: mucous membranes moist - Neck Neck exam: Present: normal inspection, full ROM - Respiratory Respiratory exam: Present: normal lung sounds bilaterally. Absent: respiratory distress, wheezes, rales, rhonchi - Cardiovascular Cardiovascular Exam: Present: regular rate, normal rhythm, normal heart sounds. Absent: systolic murmur, diastolic murmur, rubs, gallop - GI/Abdominal GI/Abdominal exam: Present: soft, normal bowel sounds. Absent: distended, tenderness, guarding, rebound - Extremities Exam Extremities exam: Present: normal inspection - Neurological Exam Neurological exam: Present: alert, oriented X3 - Psychiatric Psychiatric exam: Present: normal affect, normal mood - Skin Skin exam: Present: warm, dry, intact, normal color. Absent: rash ED Course Vital Signs 05/12/20 10:52 Temperature 97.6 F Pulse Rate 91 H Respiratory 18 Rate Blood Pressure 144/77 [Right] O2 Sat by Pulse 100 Oximetry ED Medical Decision Making - Lab Data Result diagrams: 05/12/20 11:48 05/12/20 11:48 Laboratory Results - last 24 hr 05/12/20 05/12/20 05/12/20 11:48 11:48 14:24 WBC 9.3 RBC 4.96 Hgb 13.6 Hct 41.4 MCV 84 MCH 27 L MCHC 33 RDW 15.5 H Plt Count 222 Lymph % (Auto) 27.4 [place] % (Auto) 8.4 H Eos % (Auto) 0.5 Baso % (Auto) 0.8 Lymph # (Auto) 2.5 [place] # (Auto) 0.8 Eos # (Auto) 0.0 Baso # (Auto) 0.1 Seg Neutrophils % 62.9 Seg Neutrophils # 5.9 Sodium 143 Potassium 4.8 Chloride 107.5 H Carbon Dioxide 27 Anion Gap 13 BUN 15 Creatinine 0.8 Estimated GFR > 60 BUN/Creatinine Ratio 19 Glucose 116 H Calcium 9.6 Total Bilirubin 0.20 AST 17 ALT 12 Alkaline Phosphatase 101 Troponin T < 0.010 < 0.010 Total Protein 7.2 Albumin 4.0 Albumin/Globulin Ratio 1.3 - EKG Data -: EKG Interpreted by Me EKG shows normal: sinus rhythm, axis, intervals, ST-T waves Rate: normal - EKG Data 05/12/20 16:27 EKG obtained 1101 EKG interpreted by mi Normal sinus rhythm rate 80 bpm normal axis normal intervals no ST-T sign ischemia QS complexes in the anterior leads - Radiology Data Radiology results: report reviewed Chest radiographs 2 views: No acute process - Medical Decision Making 1. Chest pain: Atypical for ACS. No persistent pain or abnormal vital signs indicate pulmonary embolism or emergent life-threatening condition. Heart score 3. Due to risk factors of hypertension diabetes tobacco abuse, cardiology referral request sent to [facility]. 2. Medication refill: I have provided 90-day prescription for both amlodipine and Metformin 3. Back pain: Lumbar strain. I recommend [id number] medications 4. Dental pain: Recommended dental care prescribed amoxicillin. I have reviewed labs CBC chemistry within normal limits. 2 sets of troponin values are negative. Critical care attestation.: If time is entered above; I have spent that time in minutes in the direct care of this critically ill patient, excluding procedure time. ED Disposition Clinical Impression: Chest pain, Medication refill, Pain, dental, Back pain Disposition: TO HOME OR SELFCARE Is pt being admited?: No Does the pt Need Aspirin: No Condition: Stable Instructions: Chest Pain (ED), Nonspecific Chest Pain, Adult Prescriptions: amLODIPine 5 mg PO DAILY #90 tab metFORMIN [Glucophage] 500 mg PO BID 90 Days #180 tablet Amoxicillin [Trimox CAP] 500 mg PO TID 7 Days #21 capsule Referrals: THERON BRADFORD MD [Staff Physician] - 3-5 Days
[2020-05-12 18:16] VITALS: BP 141/65
== END 2020-05-12 17:27 | disposition home or self-care (01) ==
LOC: ED 10:45
DX: R07.89 Other chest pain (principal); M54.9 Dorsalgia, unspecified; K08.89 Other specified disorders of teeth and supporting structures; Z76.0 Encounter for issue of repeat prescription; I10 Essential (primary) hypertension; E11.9 Type 2 diabetes mellitus without complications; M19.90 Unspecified osteoarthritis, unspecified site; F17.200 Nicotine dependence, unspecified, uncomplicated; Z90.49 Acquired absence of other specified parts of digestive tract; Z79.899 Other long term (current) drug therapy
CPT/HCPCS: 36415; 71046; 80053; 84484; 85025; 93005